=== PATIENT | female | born 1965 | race Two or more races ===

== ENCOUNTER 2019-09-23 21:26 | Emergency (ER) | payer BC, OTHER ==
[~2019-09-23] VITALS: Ht 167.6 cm; Wt 83.9 kg
[2019-09-23 22:00] VITALS: BP 146/89
[2019-09-24] MEDS ORDERED: ACETAMINOPHEN 325 MG TAB PO ONE (00:30)
[2019-09-24] MEDS ORDERED: cefTRIAXone SOD 1,000 MG VL IM ONE (01:30)
== END 2019-09-24 05:51 | disposition home or self-care (01) ==
LOC: ER 21:26
DX: J02.9 Acute pharyngitis, unspecified (principal); R50.9 Fever, unspecified; R51 Headache; Z20.828 Contact with and (suspected) exposure to other viral communicable diseases
CPT/HCPCS: 71045; 87070; 87635; 87804; 87880; 96372; 99284; J0696

== ENCOUNTER 2023-08-29 09:25 | Inpatient (IN) | payer BC ==
[~2023-08-29] VITALS: Ht 167.6 cm; Wt 85.0 kg
[2023-08-29 11:07] LABS: Urine Bacteria MOD /hpf (None Seen); Urine Blood Negative /uL (Negative); Urine Clarity Turbid (Clear); Urine Color Yellow (Yellow); Urine Mucus FEW (None Seen); Urine Protein, UAD TRACE (Negative); Urine Specific Gravity 1.026 (1.001-1.035); Urine Urobilinogen Normal (Negative); Urine WBC 17 /hpf (0 - 5); Urine pH 5.5 (5.0-9.0)
[2023-08-29 11:28] LABS: Basophils # (auto) 0.1 10 ^3/uL (0-0.2); Basophils % (auto) 0.6 % (0.0-2.0); Eosinophils # (auto) 0.1 10 ^3/uL (0-0.8); Eosinophils % (auto) 1.3 % (0.0-7.0); Hematocrit 35.6 % (36.0-46.0); Hemoglobin 11.6 g/dL (12.2-16.2); Lymphocytes # (auto) 2.4 10 ^3/uL (0.4-5.4); Mean Corpuscular Hemoglobin 29.3 pg (28.0-32.0); Mean Corpuscular Hgb Conc. 32.6 g/dL (32.0-36.0); Mean Corpuscular Volume 89.8 fL (80.0-100.0); Monocytes # (auto) 0.9 10 ^3/uL (0-1.3); Monocytes % (auto) 7.6 % (0.0-12.0); Neutrophils # (auto) 7.9 10 ^3/uL (1.6-8.6); Neutrophils % (auto) 69.5 % (37.0-80.0); Red Blood Cells 3.97 10^6/uL (4.0-5.20); Red Cell Distribution Width 12.7 % (11.8-14.3); White Blood Cell 11.4 10^3/uL (4.4-10.8)
[2023-08-29 11:55] LABS: Chloride 103 mmol/L (98-107); Potassium 3.9 mmol/L (3.5-5.1); Sodium 136 mmol/L (136-145)
[2023-08-29 11:56] LABS: Anion Gap 8 (5-15); Calcium 9.4 mg/dL (8.5-10.1); Carbon Dioxide 25 mmol/L (20-30)
[2023-08-29 12:01] LABS: BUN/Creatinine Ratio 11.9 (10.0-20.0); Blood Urea Nitrogen 10 mg/dL (9-23); Glucose 294 mg/dL (74-106)
[2023-08-29 12:48] VITALS: PULSE 85; RESP 15; O2SAT 98
[2023-08-29] MEDS: cefTRIAXone 1GM/50ML D5W 50 ML IV ONE (12:54)
[2023-08-29] MEDS: SODIUM CHLORIDE 0.9% 1,000 ML IV ONE ×2 (13:07→14:03)
[2023-08-29] MEDS ORDERED: HYDROcodone-ACET 5/325MG TAB PO PRN (15:30)
[2023-08-29] MEDS ORDERED: MORPHINE SULFATE INJ 2 MG/ml SYRG IV PRN ×2 (15:30)
[2023-08-29] MEDS ORDERED: NITROGLYCERIN 0.4 MG SL TAB SL PRN (15:30)
[2023-08-29] MEDS ORDERED: DOCUSATE SOD 100 MG CAP PO PRN (15:30)
[2023-08-29] MEDS ORDERED: DEXTROSE (50%) 50ML SYRG IV PRN (15:30)
[2023-08-29] MEDS ORDERED: ACETAMINOPHEN 325 MG TAB PO PRN (15:30)
[2023-08-29] MEDS: ACCU-CHEK COMFORT CURVE STRIP VI SCH (17:19)
[2023-08-29] MEDS: InsuLIN REG 1unit/0.01ml Soln (100units/ml) SC SCH (17:29)
[2023-08-29 19:00] VITALS: BP 138/71; PULSE 108; RESP 18; TEMP 99.1; O2SAT 96
[2023-08-29] MEDS ORDERED: IPRATROPIUM BROM 0.5 MG/2.5ML INH SOL NEB PRN (19:00)
[2023-08-29] MEDS ORDERED: guaiFENesin 200 MG/10 ML UD GT PRN (19:00)
[2023-08-29] MEDS ORDERED: ALBUTEROL SULF 2.5 MG/0.5ML(0.5%) NEB SOLN NEB PRN (19:00)
[2023-08-29 21:00] VITALS: BP 138/71; PULSE 108; RESP 18; TEMP 99.1; O2SAT 96
[2023-08-29] MEDS ORDERED: guaiFENesin 200 MG/10 ML UD PO PRN (22:15)
[2023-08-30] VITALS (9 sets, daily range): BP systolic 142–168; BP diastolic 82–98; PULSE 93–101; RESP 16–20; TEMP 98.1–98.9; O2SAT 94–98
[2023-08-30] MEDS: diphenhdrAMINE HCL 25 MG CAP PO ONE (00:45)
[2023-08-30 07:13] LABS: Basophils # (auto) 0.1 10 ^3/uL (0-0.2); Basophils % (auto) 0.6 % (0.0-2.0); Eosinophils # (auto) 0.2 10 ^3/uL (0-0.8); Eosinophils % (auto) 2.5 % (0.0-7.0); Hematocrit 32.8 % (36.0-46.0); Hemoglobin 10.9 g/dL (12.2-16.2); Lymphocytes # (auto) 2.3 10 ^3/uL (0.4-5.4); Lymphocytes % (auto) 25.3 % (10.0-50.0); Mean Corpuscular Hemoglobin 30.1 pg (28.0-32.0); Mean Corpuscular Hgb Conc. 33.2 g/dL (32.0-36.0); Mean Corpuscular Volume 90.6 fL (80.0-100.0); Monocytes # (auto) 0.7 10 ^3/uL (0-1.3); Monocytes % (auto) 7.9 % (0.0-12.0); Neutrophils # (auto) 5.8 10 ^3/uL (1.6-8.6); Neutrophils % (auto) 63.7 % (37.0-80.0); Red Blood Cells 3.62 10^6/uL (4.0-5.20); Red Cell Distribution Width 13.1 % (11.8-14.3); White Blood Cell 9.2 10^3/uL (4.4-10.8)
[2023-08-30 07:40] LABS: Alanine Aminotransferase 15 U/L (7-40); Albumin 3.8 g/dL (3.2-4.8); Alkaline Phosphatase 98 U/L (46-116); Anion Gap 6 (5-15); Aspartate Aminotransferase 12 U/L (13-40); BUN/Creatinine Ratio 8.6 (10.0-20.0); Bilirubin, Total 0.3 mg/dL (0.2-1.0); Blood Urea Nitrogen 7 mg/dL (9-23); Carbon Dioxide 26 mmol/L (20-30); Chloride 105 mmol/L (98-107); Glucose 263 mg/dL (74-106); Potassium 4.1 mmol/L (3.5-5.1); Sodium 137 mmol/L (136-145); Total Protein 6.7 g/dL (5.7-8.2)
[2023-08-30] MEDS: cefTRIAXone 1GM/50ML D5W 50 ML IV SCH (10:18)
[2023-08-30] MEDS: LORATADINE 10 MG TAB PO SCH (10:18)
[2023-08-30] MEDS ORDERED: DEXTROSE (50%) 50ML SYRG IV PRN (15:30)
[2023-08-30] MEDS: LISINOPRIL 5 MG TAB PO ONE (15:55)
[2023-08-30] MEDS: PSEUDOEPHEDRINE HCL 30 MG TAB PO ONE (16:39)
[2023-08-30] MEDS: FLUTICASONE PROP NASAL SPR 0.05 % (50MCG) 16GM EACHNOSTRI ONE (16:39)
[2023-08-30] MEDS: ACCU-CHEK COMFORT CURVE STRIP VI SCH (17:01)
[2023-08-30] MEDS: InsuLIN REG 1unit/0.01ml Soln (100units/ml) SC SCH ×2 (17:16→21:18)
[2023-08-30] MEDS: metFORMIN HYDROCHLORIDE 500 MG TAB PO SCH (17:45)
[2023-08-30] MEDS ORDERED: SITA50TA PO (18:20)
[2023-08-30] MEDS ORDERED: CETI10CA PO (18:20)
[2023-08-30] MEDS ORDERED: SERT-206 PO (18:20)
[2023-08-30] MEDS ORDERED: METF-370 PO (18:20)
[2023-08-30] MEDS ORDERED: LORA-1130 PO (18:20)
[2023-08-30] MEDS: ONDANSETRON HCL 4 MG/2 ML VIAL IV PRN (20:10)
[2023-08-30] MEDS: FLUTICASONE PROP NASAL SPR 0.05 % (50MCG) 16GM EACHNOSTRI SCH (21:14)
[2023-08-30] MEDS: PSEUDOEPHEDRINE HCL 30 MG TAB PO SCH (21:14)
[2023-08-31] VITALS (8 sets, daily range): BP systolic 132–156; BP diastolic 78–85; PULSE 95–100; RESP 16–18; TEMP 97.8–98.4; O2SAT 96–98
[2023-08-31] MEDS: hydrALAZINE HCL 20 MG/ML VL IV PRN (00:59)
[2023-08-31 06:51] LABS: Chloride 106 mmol/L (98-107); Potassium 3.6 mmol/L (3.5-5.1); Sodium 139 mmol/L (136-145)
[2023-08-31 06:52] LABS: Anion Gap 10 (5-15); Calcium 9.5 mg/dL (8.7-10.4); Carbon Dioxide 23 mmol/L (20-30)
[2023-08-31 06:57] LABS: BUN/Creatinine Ratio 12.8 (10.0-20.0); Blood Urea Nitrogen 10 mg/dL (9-23); Glucose 225 mg/dL (74-106)
[2023-08-31 07:00] LABS: Basophils # (auto) 0 10 ^3/uL (0-0.2); Basophils % (auto) 0.4 % (0.0-2.0); Eosinophils # (auto) 0.1 10 ^3/uL (0-0.8); Eosinophils % (auto) 1.1 % (0.0-7.0); Hematocrit 34.2 % (36.0-46.0); Hemoglobin 11.6 g/dL (12.2-16.2); Lymphocytes # (auto) 2.7 10 ^3/uL (0.4-5.4); Lymphocytes % (auto) 25.4 % (10.0-50.0); Mean Corpuscular Hemoglobin 30.3 pg (28.0-32.0); Mean Corpuscular Volume 89.1 fL (80.0-100.0); Monocytes # (auto) 0.9 10 ^3/uL (0-1.3); Monocytes % (auto) 8.1 % (0.0-12.0); Red Blood Cells 3.84 10^6/uL (4.0-5.20); Red Cell Distribution Width 12.4 % (11.8-14.3); White Blood Cell 10.8 10^3/uL (4.4-10.8)
[2023-08-31] MEDS: LISINOPRIL 5 MG TAB PO SCH (09:54)
[2023-08-31] MEDS ORDERED: LISI10TA34 PO (13:43)
[2023-08-31] MEDS ORDERED: FLUT50SP EACHNOSTRI (13:43)
[2023-08-31] MEDS ORDERED: LEVO500T91 PO (13:43)
== END 2023-08-31 17:30 | disposition home or self-care (01) | DRG 872 ==
LOC: ER 09:25 → OVERFLOW 15:31 → CENTRAL 18:33
PROVIDERS: ADMIT Nurse Practitioner Family; ATTEND Internal Medicine
DX: A41.51 Sepsis due to Escherichia coli [E. coli] (principal); N30.00 Acute cystitis without hematuria; E11.65 Type 2 diabetes mellitus with hyperglycemia; I10 Essential (primary) hypertension; E66.9 Obesity, unspecified; J06.9 Acute upper respiratory infection, unspecified; Z79.899 Other long term (current) drug therapy; Z90.710 Acquired absence of both cervix and uterus; Z68.30 Body mass index [BMI] 30.0-30.9, adult
CPT/HCPCS: 36415; 71045; 80048; 80053; 81001; 82962; 83036; 84443; 85025; 87040; 87086; 87088; 87186; 93005; 96361; 96365; G0378; J1815; J2405